=== PATIENT | male | born 1970 | race Caucasian/White ===

== ENCOUNTER 2021-03-13 07:16 | Observation (INO) | payer BC ==
[~2021-03-13] VITALS: Ht 172.7 cm; Wt 81.8 kg
[2021-03-13 07:30] LABS: BASO # 0.1 x10^3/uL (0.0-0.2); BASO % 1 % (0-3); EOS # 0.3 x10^3/uL (0.0-0.7); EOS % 4 % (0-3); HEMATOCRIT 41.1 % (39.0-53.0); HEMOGLOBIN 13.9 g/dL (13.0-17.5); LYMPH # 2.6 x10^3/uL (1.0-4.8); LYMPH % 30 % (24-48); MEAN CORPUSCULAR HEMOGLOBIN 31 pg (25-35); MEAN CORPUSCULAR HGB CONC 34 g/dL (31-37); MEAN CORPUSCULAR VOLUME 90 fL (79-100); MONO # 0.5 x10^3/uL (0.0-1.1); MONO % 6 % (0-9); NEUT # 5.1 x10^3/uL (1.8-7.7); NEUT % 60 % (31-73); PLATELET COUNT 191 x10^3/uL (140-400); RED BLOOD COUNT 4.56 x10^6/uL (4.30-5.70); RED CELL DISTRIBUTION WIDTH 14.7 % (11.5-14.5); WHITE BLOOD COUNT 8.6 x10^3/uL (4.0-11.0)
--- NOTE | 2021-03-13 07:30 | PHYS DOC ---
Past Medical History Past Medical History: CAD, Diabetes-Type II, Hypertension Additional Past Medical Histor: CAD s/p stents to RCA and LAD General Adult EDM: Chief Complaint: CHEST PAIN HPI: HPI: Patient is a 51 year old male with past medical history of HTN, DM, CAD s/p stents to RCA and LAD who presents with chest pressure starting at 6:30 AM while seated in his car. Was central. Did not radiate. He called EMS immediately, because it felt similar to his previous NC pain. No associated shortness of breath, fever/chills, or cough. No lower extremity edema. Was feeling well prior to this episode. EMS arrived on scene and gave him a nitroglycerin which alleviated his pain. In total, he estimates approximately 20 minutes of chest pain. He also received 324 mg of aspirin prehospital. He has been off of aspirin for some time, which she states was under the direction of his primary care doctor. Unclear whether he has drug-eluting vs bare-metal stents. Review of Systems: Review of Systems: Constitutional: Denies fever or chills. [] Eyes: Denies change in visual acuity. [] HENT: Denies nasal congestion or sore throat. [] Respiratory: Denies cough or shortness of breath. [] Cardiovascular: + chest pain or edema. [] GI: Denies abdominal pain, nausea, vomiting, bloody stools or diarrhea. [] : Denies dysuria. [] Musculoskeletal: Denies back pain or joint pain. [] Integument: Denies rash. [] Neurologic: Denies headache, focal weakness or sensory changes. [] Endocrine: Denies polyuria or polydipsia. [] Lymphatic: Denies swollen glands. [] Psychiatric: Denies depression or anxiety. [] Heart Score: C/O Chest Pain: Yes HEART Score for Chest Pain: HEART Score for Chest Pain Response (Comments) Value History Highly Suspicious [address] Depression 2 Age >45 - < 65 1 Risk Factors >3 Risk Factors or Hx CAD 2 Troponin < Normal Limit 0 Total 7 Risk Factors: Risk Factors: DM, Current or recent (<one month) smoker, HTN, HLP, family history of CAD, obesity. Risk Scores: Score 0 - 3: 2.5% MACE over next 6 weeks - Discharge Home Score 4 - 6: 20.3% MACE over next 6 weeks - Admit for Clinical Observation Score 7 - 10: 72.7% MACE over next 6 weeks - Early Invasive Strategies Physical Exam: PE: Constitutional: No distress. Well developed, well nourished, no acute distress, non-toxic appearance. [] HENT: Normocephalic, atraumatic, bilateral external ears normal, oropharynx moist, no oral exudates, nose normal. [] Eyes: PERRLA, EOMI, conjunctiva normal, no discharge. [] Neck: Normal range of motion, no tenderness, supple, no stridor. [] Cardiovascular:Heart rate regular rhythm, no murmur [] Lungs & Thorax: Bilateral breath sounds clear to auscultation [] Abdomen: Bowel sounds normal, soft, no tenderness, no masses, no pulsatile masses. [] Skin: Warm, dry, no erythema, no rash. [] Back: No tenderness, no CVA tenderness. [] Extremities: No tenderness, no cyanosis, no clubbing, ROM intact, no edema. [] Neurologic: Alert and oriented X 3, normal motor function, normal sensory function, no focal deficits noted. [] Psychologic: Affect normal, judgement normal, mood normal. [] EKG: EKG: Sinus rhythm. Rate 58. Normal axis. ST depressions and T wave inversions anteriorly V1V6. No ST elevation/STEMI [] Radiology/Procedures: Radiology/Procedures: CXR[] Impression: [facility] [address] [place] [address] IMAGING REPORT Signed PATIENT: KULWINDER ELKINS ACCOUNT: [id number] : 1970 LOCATION: ER AGE: 51 SEX: M EXAM STATUS: PRE ER ORD. PHYSICIAN: ADRI ANGELA MD REASON: chest pain PROCEDURE: CHEST AP ONLY Study: XR CHEST 1V Indication: Chest pain. Comparison: None. Findings: The cardiomediastinal silhouette is within normal limits for size. Coronary artery stent. Unremarkable catracho. No focal airspace infiltrate, pleural effusion or pneumothorax. Impression: No acute radiographic abnormality of the chest. Electronically signed by: ALEKS WOODS MD (03/13/2021 7:49 AM) [facility] DICTATED and SIGNED BY: ALEKS WOODS MD DATE: 03/13/21 [id number] 0 Course & Med Decision Making: Course & Med Decision Making Pertinent Labs and Imaging studies reviewed. (See chart for details) Patient is a 51-year-old male with history of HTN, DM, CAD s/p RCA and LAD stents who presents with chest pain reminiscent of previous NC pain. Pain alleviated with nitroglycerin. Received 324 mg prehospital aspirin. EKG here shows ST depression and T wave inversions anteriorly. Unfortunately, no previous tracing for comparison. Patient is no longer on daily aspirin, and unclear whether he has NILDA vs bare metal stents. Certainly most concerning for ACS. HEART SCORE = 7 prior to troponin. Will require admission for ongoing testing. I have a low suspicion for other serious causes of chest pain including PE, aortic dissection, PNA, PTX, esophageal rupture. 0729 Chest x-ray clear. Initial troponin is negative, but will require serial troponins. We will discuss admission with hospitalist. [id number] Vinay Disclaimer: Vinay Disclaimer: This electronic medical record was generated, in whole or in part, using a voice recognition dictation system. Departure Departure Impression: Primary Impression: Chest pain Disposition: ADMITTED INPATIENT Admitting Physician: SUHA Saravia) Condition: STABLE ADRI ANGELA MD Mar 13, 2021 07:30
[2021-03-13 07:40] LABS: CALCIUM 9.5 mg/dL (8.5-10.1); CREATININE 1.6 mg/dL (0.7-1.3); GFR 45.4; POTASSIUM 3.5 mmol/L (3.5-5.1)
[2021-03-13 07:45] LABS: ALBUMIN 3.6 g/dL (3.4-5.0); ALBUMIN/GLOBULIN RATIO 1.2 (1.0-1.7); TOTAL BILIRUBIN 0.4 mg/dL (0.2-1.0); TOTAL PROTEIN 6.7 g/dL (6.4-8.2)
--- NOTE | 2021-03-13 07:52 | RAD ---
Study: XR CHEST 1V Indication: Chest pain. Comparison: None. Findings: The cardiomediastinal silhouette is within normal limits for size. Coronary artery stent. Unremarkabl e catracho. No focal airspace infiltrate, pleural effusion or pneumothorax. Impression: No acute radiographic abnormality of the chest. Electronically signed by: ALEKS WOODS MD (03/13/2021 7:49 AM) [facility]
--- NOTE | 2021-03-13 08:12 | PDOC1 ---
History and Physical Date of Admission Date of Admission DATE: 03/13/21 TIME: 08:12 Identification/Chief Complaint Chief Complaint Chest pain Source Source: Patient History of Present Illness History of Present Illness Mr Longo is a 51 year old male with past medical history of HTN, DM, ADHD, smoker, and CAD s/p stents to RCA and LAD in 2018 (at [facility]) who presents with chest pressure starting at 6:30 AM while seated in his car after driving to work for [employer]. Was left sided and sharp, rated 7/10. Did not radiate, has some associated nausea and diaphoresis. He called EMS immediately, because it felt similar to his previous ID pain. No associated shortness of breath, fever/chills, or cough. No lower extremity cory ma. Was feeling well prior to this episode. EMS administered 324 mg of aspirin and a nitroglycerin which immediately alleviated his pain. His last cardiology follow-up was 2 years ago where he had an echocardiogram and does not know the results. He recently saw his primary care doctor and notes that he had said he stopped taking aspirin for over a year and they did not tell him to get back on it. He does continue to smoke a pack a day. He does not check his blood sugar takes Metformin monotherapy for his diabetes and says his last hemoglobin A1c was "good" but does not remember the number. EKG appears sinus rhythm rate of 54 bpm with a leftward axis T flattening in 2 aVF as well as inversion in V2 and V3 V4 V5 and V6. Chest radiograph no acute findings Labs WBC 8.6, Hb 13.9, platelets 191, sodium 135, K3.5, BUN 14, CR 1.6, glucose 340, bilirubin 0.4, AST 53, ALT 50, alk phos 111, troponin 0, albumin 3.6 Admitted for further observation and care. Past Medical History Cardiovascular: CAD, HTN, ID (2018 - NILDA to LAD and RCA), Hyperlipidemia Psych: Other (ADHD) Endocrine: Diabetes Past Surgical History Past Surgical History: No pertinent history Family History Family History: Coronary Artery Disease, Diabetes, High Cholestrol, Hypertension Social History Smoke: 1 pack per day ALCOHOL: none Drugs: None Current Problem List Problem List Problems Medical Problems: (1) Chest pain Status: Acute Allergies Allergies: Coded Allergies: No Known Drug Allergies (Unverified , 03/13/21) ROS General: No: Chills, Night Sweats, Fatigue, Malaise, Appetite, Other PSYCHOLOGICAL ROS: No: Anxiety, Behavioral Disorder, Concentration difficultie, Decreased libido, Depression, Disorientation, Hallucinations, Hostility, Irritablity, Memory difficulties, Mood Swings, Obsessive thoughts, Physical abuse, Sexual abuse, Sleep disturbances, Suicidal ideation, Other Eyes: No Blurry vision, No Decreased vision, No Double vision, No Dry eyes, No Excessive tearing, No Eye Pain, No Itchy Eyes, No Loss of vision, No Photophobia, No Scotomata, No Uses contacts, No Uses glasses, No Other HEENT: No: Heacaches, Visual Changes, Hearing change, Nasal congestion, Nasal discharge, Oral lesions, Sinus pain, Sore Throat, Epistaxis, Sneezing, Snoring, Tinnitus, Vertigo, Vocal changes, Other ALLERGY AND IMMUNOLOGY: No: Hives, Insect Bite Sensitivity, Itchy/Watery Eyes, Nasal Congestion, Post Nasal Drip, Seasonal Allergies, Other Hematological and Lymphatic: No: Bleeding Problems, Blood Clots, Blood Transfusions, Brusing, Night Sweats, Pallor, Swollen Lymph Nodes, Other ENDOCRINE: No: Breast Changes, Galactorrhea, Hair Pattern Changes, Hot Flashes, Malaise/lethargy, Mood Swings, Palpitations, Polydipsia/polyuria, Skin Changes, Temperature Intolerance, Unexpected Weight Changes, Other Breast: No New/Changing Breast Lumps, No Nipple changes, No Nipple discharge, No Other Respiratory: No: Cough, Hemoptysis, Orthopnea, Pleuritic Pain, Shortness of breath, SOB with excertion, Sputum Changes, Stridor, Tachypnea, Wheezing, Other Cardiovascular: yes Chest Pain; No Palpitations, No Orthopnea, No Paroxysmal Noc. Dyspnea, No Edema, No Lt Headedness, No Other Gastrointestinal: No Nausea, No Vomiting, No Abdominal Pain, No Diarrhea, No Constipation, No Melena, No Hematochezia, No Other Genitourinary: No Dysuria, No Frequency, No Incontinence, No Hematuria, No Retention, No Discharge, No Urgency, No Pain, No Flank Pain, No Other, No , No , No , No , No , No , No Musculoskeletal: No Gait Disturbance, No Joint Pain, No Joint Stiffness, No Joint Swelling, No Muscle Pain, No Muscular Weakness, No Pain In:, No Swelling In:, No Other Neurological: No Behavorial Changes, No Bowel/Bladder ControlChng, No Confusion, No Dizziness, No Gait Disturbance, No Headaches, No Impaired Coord/balance, No Memory Loss, No Numbness/Tingling, No Seizures, No Speech Problems, No Tremors, No Visual Changes, No Weakness, No Other Skin: No Dry Skin, No Eczema, No Hair Changes, No Lumps, No Mole Changes, No Mottling, No Nail Changes, No Pruritus, No Rash, No Skin Lesion Changes, No Other, No Acne Physical Exam General: Alert, Oriented X3, Cooperative, No acute distress HEENT: Atraumatic, PERRLA, EOMI, Mucous membr. moist/pink Lungs: Clear to auscultation, Normal air movement Heart: S1S2, RRR, no thrills, no rubs, no gallops, no murmurs Abdomen: Normal bowel sounds, Soft, No tenderness, No hepatosplenomegaly, No masses Rectal Exam: not examined Extremities: No clubbing, No cyanosis, No edema, Normal pulses, No tenderness/swelling Skin: No rashes, No breakdown, No significant lesion Neuro: Normal gait, Normal speech, Strength at 5/5 X4 ext, Normal tone, Sensation intact, Cranial nerves 3-12 NL, Reflexes 2+ Psych/Mental Status: Mental status NL, Mood NL Vitals Vitals Vital Signs Date Time Temp Pulse Resp B/P (MAP) Pulse Ox O2 Delivery O2 Flow Rate FiO2 03/13/21 08:10 56 119/74 (89) 95 03/13/21 07:19 98.5 20 Room Air 98.5 Labs Labs Laboratory Tests Test 03/13/21 07:20 White Blood Count 8.6 x10^3/uL (4.0-11.0) Red Blood Count 4.56 x10^6/uL (4.30-5.70) Hemoglobin 13.9 g/dL (13.0-17.5) Hematocrit 41.1 % (39.0-53.0) Mean Corpuscular Volume 90 fL (79-100) Mean Corpuscular Hemoglobin 31 pg (25-35) Mean Corpuscular Hemoglobin Concent 34 g/dL (31-37) Red Cell Distribution Width 14.7 % (11.5-14.5) Platelet Count 191 x10^3/uL (140-400) Neutrophils (%) (Auto) 60 % (31-73) Lymphocytes (%) (Auto) 30 % (24-48) Monocytes (%) (Auto) 6 % (0-9) Eosinophils (%) (Auto) 4 % (0-3) Basophils (%) (Auto) 1 % (0-3) Neutrophils # (Auto) 5.1 x10^3/uL (1.8-7.7) Lymphocytes # (Auto) 2.6 x10^3/uL (1.0-4.8) Monocytes # (Auto) 0.5 x10^3/uL (0.0-1.1) Eosinophils # (Auto) 0.3 x10^3/uL (0.0-0.7) Basophils # (Auto) 0.1 x10^3/uL (0.0-0.2) Sodium Level 135 mmol/L (136-145) Potassium Level 3.5 mmol/L (3.5-5.1) Chloride Level 101 mmol/L (98-107) Carbon Dioxide Level 21 mmol/L (21-32) Anion Gap 13 (6-14) Blood Urea Nitrogen 14 mg/dL (8-26) Creatinine 1.6 mg/dL (0.7-1.3) Estimated GFR (Cockcroft-Gault) 45.4 BUN/Creatinine Ratio 9 (6-20) Glucose Level 340 mg/dL (70-99) Calcium Level 9.5 mg/dL (8.5-10.1) Total Bilirubin 0.4 mg/dL (0.2-1.0) Aspartate Amino Transf (AST/SGOT) 53 U/L (15-37) Alanine Aminotransferase (ALT/SGPT) 50 U/L (16-63) Alkaline Phosphatase 111 U/L (46-116) Troponin I Quantitative < 0.017 ng/mL (0.000-0.055) Total Protein 6.7 g/dL (6.4-8.2) Albumin 3.6 g/dL (3.4-5.0) Albumin/Globulin Ratio 1.2 (1.0-1.7) Laboratory Tests Test 03/13/21 07:20 White Blood Count 8.6 x10^3/uL (4.0-11.0) Red Blood Count 4.56 x10^6/uL (4.30-5.70) Hemoglobin 13.9 g/dL (13.0-17.5) Hematocrit 41.1 % (39.0-53.0) Mean Corpuscular Volume 90 fL (79-100) Mean Corpuscular Hemoglobin 31 pg (25-35) Mean Corpuscular Hemoglobin Concent 34 g/dL (31-37) Red Cell Distribution Width 14.7 % (11.5-14.5) Platelet Count 191 x10^3/uL (140-400) Neutrophils (%) (Auto) 60 % (31-73) Lymphocytes (%) (Auto) 30 % (24-48) Monocytes (%) (Auto) 6 % (0-9) Eosinophils (%) (Auto) 4 % (0-3) Basophils (%) (Auto) 1 % (0-3) Neutrophils # (Auto) 5.1 x10^3/uL (1.8-7.7) Lymphocytes # (Auto) 2.6 x10^3/uL (1.0-4.8) Monocytes # (Auto) 0.5 x10^3/uL (0.0-1.1) Eosinophils # (Auto) 0.3 x10^3/uL (0.0-0.7) Basophils # (Auto) 0.1 x10^3/uL (0.0-0.2) Sodium Level 135 mmol/L (136-145) Potassium Level 3.5 mmol/L (3.5-5.1) Chloride Level 101 mmol/L (98-107) Carbon Dioxide Level 21 mmol/L (21-32) Anion Gap 13 (6-14) Blood Urea Nitrogen 14 mg/dL (8-26) Creatinine 1.6 mg/dL (0.7-1.3) Estimated GFR (Cockcroft-Gault) 45.4 BUN/Creatinine Ratio 9 (6-20) Glucose Level 340 mg/dL (70-99) Calcium Level 9.5 mg/dL (8.5-10.1) Total Bilirubin 0.4 mg/dL (0.2-1.0) Aspartate Amino Transf (AST/SGOT) 53 U/L (15-37) Alanine Aminotransferase (ALT/SGPT) 50 U/L (16-63) Alkaline Phosphatase 111 U/L (46-116) Troponin I Quantitative < 0.017 ng/mL (0.000-0.055) Total Protein 6.7 g/dL (6.4-8.2) Albumin 3.6 g/dL (3.4-5.0) Albumin/Globulin Ratio 1.2 (1.0-1.7) Images Images Chest radiograph: The cardiomediastinal silhouette is within normal limits for size. Coronary artery stent. Unremarkable catracho. No focal airspace infiltrate, pleural effusion or pneumothorax. Impression: No acute radiographic abnormality of the chest. VTE Prophylaxis Ordered VTE Prophylaxis Devices: No VTE Pharmacological Prophylaxi: Yes Assessment/Plan Assessment/Plan A/P: Unstable angina -needs nitroglycerin and ASA. Will trend troponins and monitor on telemetry. Echocardiogram to further risk stratify and consult cardiology for further recommendations. He prefer to follow-up at [facility] and made it clear to me. DM2 -on Metformin therapy. Will hold today urgent cardiac catheterization as needed. Advised to add Jardiance to his outpatient therapies amenable to taking a prescription. He should also have a microalbumin creatinine ratio checked HLD - statin HTN - on bystolic DARRICK - no hx of renal disease. likely vasomotor nephropathy, will hydrate Hypokalemia - will replace IV ADHD - recently taken off adderall per his PCP Smoker - counseled on cessation, provided nicotine replacement therapy, he declines FEN - cardiac diet PPX - lovenox FULL CODE Dispo - inpatient Justifications for Admission Other Justification ADOLFO VALENTINE MD Mar 13, 2021 08:12
[2021-03-13] MEDS ORDERED: ONDANSETRON PF 4 MG/2 ML VIAL. IVP PRN (08:15)
[2021-03-13] MEDS ORDERED: DEXTROSE 50% 25 GM / 50ML DISP.SYRIN. IV PRN (08:15)
[2021-03-13] MEDS ORDERED: ACETAMINOPHEN 325 MG TABLET. PO PRN (08:15)
[2021-03-13] MEDS ORDERED: NITROGLYCERIN SUBLINGUAL 0.4 MG BOTTLE OF 25. SL PRN (08:15)
[2021-03-13] MEDS ORDERED: POTASSIUM CL 20MEQ-0.45% NACL 1,000 ML IV ONE (09:00)
[2021-03-13] MEDS ORDERED: ENOXAPARIN 40 MG/0.4 ML SYRINGE. SQ SCH (09:00)
[2021-03-13] MEDS ORDERED: FAMOTIDINE 20 MG TABLET. PO ONE (09:00)
[2021-03-13] MEDS ORDERED: INSULIN LISPRO 300 UNITS/3 ML VIAL. SQ ONE (09:00)
[2021-03-13] MEDS ORDERED: INSULIN LISPRO 300 UNITS/3 ML VIAL. SQ SCH (12:00)
--- NOTE | 2021-03-13 12:34 | PDOC2 ---
ERNIE SPRINGER [employer] 03/13/21 1234: CARDIAC CONSULT DATE OF CONSULT Date of Consult DATE: 03/13/21 TIME: 12:30 REASON FOR CONSULT Reason for Consult: Chest pain REFERRING PHYSICIAN Referring Physician: Dr. Hemphill SOURCE Source: Chart review, Patient HISTORY OF PRESENT ILLNESS HISTORY OF PRESENT ILLNESS This is a 51 yo male who presented secondary to chest pain. Patient reports development of left chest pain upon driving to work this morning. Reports pressure in his left chest. Associated with shortness of breath. No dizziness, diaphoresis, or nausea/vomiting. Pain did not radiate, but was similar to what maciel green experienced 10 years ago with NJ so he decided to come to the ED for further evaluation and treatment. Pain resolved with nitro in ED and has not returned. Previously followed at [facility]. Had followup up with stress test and echo about 6-7 months for which he reports as normal. PAST MEDICAL HISTORY Cardiovascular: CAD, HTN, Hyperlipidemia Endocrine: Diabetes PAST SURGICAL HISTORY Past Surgical History: Other (PCI/stents to RCA and LAD) FAMILY HISTORY Family History: Hypertension SOCIAL HISTORY Smoke: 1 pack per day ALCOHOL: none Drugs: None Lives: with Family CURRENT MEDICATIONS CURRENT MEDICATIONS Current Medications Medications (Trade) Dose Ordered Sig/Minerva Route PRN Reason Start Time Stop Time Status Last Admin Dose Admin Potassium Chloride/Sodium Chloride 1,000 ml @ 150 mls/hr [id number] ONCE IV 03/13/21 09:00 03/13/21 15:39 03/13/21 09:16 Insulin Human Lispro (HumaLOG) 10 units 1X ONCE SQ 03/13/21 09:00 03/13/21 09:01 DC 03/13/21 09:15 Famotidine (Pepcid) 20 mg 1X ONCE PO 03/13/21 09:00 03/13/21 09:01 DC 03/13/21 09:22 Enoxaparin Sodium (Lovenox 40mg Syringe) 40 mg Q24H SQ 03/13/21 09:00 03/13/21 09:23 ALLERGIES ALLERGIES: Coded Allergies: No Known Drug Allergies (Unverified , 03/13/21) ROS Review of System 14 point ROS conducted with pertinent positives noted above in HPI PHYSICAL EXAM General: Alert, Oriented X3, Cooperative, No acute distress HEENT: Atraumatic Lungs: Clear to auscultation Heart: Regular rate Abdomen: Soft Extremities: No edema, Normal pulses Skin: No breakdown, No significant lesion Neuro: Normal speech, Sensation intact Psych/Mental Status: Mental status NL, Mood NL MUSCULOSKELETAL: Osteoarthritic changes both hands VITALS/I&O VITALS/I&O: Vital Signs Date Time Temp Pulse Resp B/P (MAP) Pulse Ox O2 Delivery O2 Flow Rate FiO2 03/13/21 10:17 49 105/62 (76) 95 03/13/21 07:19 98.5 20 Room Air 98.5 LABS Lab: Laboratory Tests Test 03/13/21 07:20 03/13/21 08:28 03/13/21 09:13 03/13/21 11:37 White Blood Count 8.6 x10^3/uL (4.0-11.0) Red Blood Count 4.56 x10^6/uL (4.30-5.70) Hemoglobin 13.9 g/dL (13.0-17.5) Hematocrit 41.1 % (39.0-53.0) Mean Corpuscular Volume 90 fL (79-100) Mean Corpuscular Hemoglobin 31 pg (25-35) Mean Corpuscular Hemoglobin Concent 34 g/dL (31-37) Red Cell Distribution Width 14.7 % (11.5-14.5) H Platelet Count 191 x10^3/uL (140-400) Neutrophils (%) (Auto) 60 % (31-73) Lymphocytes (%) (Auto) 30 % (24-48) Monocytes (%) (Auto) 6 % (0-9) Eosinophils (%) (Auto) 4 % (0-3) H Basophils (%) (Auto) 1 % (0-3) Neutrophils # (Auto) 5.1 x10^3/uL (1.8-7.7) Lymphocytes # (Auto) 2.6 x10^3/uL (1.0-4.8) Monocytes # (Auto) 0.5 x10^3/uL (0.0-1.1) Eosinophils # (Auto) 0.3 x10^3/uL (0.0-0.7) Basophils # (Auto) 0.1 x10^3/uL (0.0-0.2) Sodium Level 135 mmol/L (136-145) L Potassium Level 3.5 mmol/L (3.5-5.1) Chloride Level 101 mmol/L (98-107) Carbon Dioxide Level 21 mmol/L (21-32) Anion Gap 13 (6-14) Blood Urea Nitrogen 14 mg/dL (8-26) Creatinine 1.6 mg/dL (0.7-1.3) H Estimated GFR (Cockcroft-Gault) 45.4 BUN/Creatinine Ratio 9 (6-20) Glucose Level 340 mg/dL (70-99) H Calcium Level 9.5 mg/dL (8.5-10.1) Total Bilirubin 0.4 mg/dL (0.2-1.0) Aspartate Amino Transferase (AST) 53 U/L (15-37) H Alanine Aminotransferase (ALT) 50 U/L (16-63) Alkaline Phosphatase 111 U/L (46-116) Troponin I Quantitative < 0.017 ng/mL (0.000-0.055) < 0.017 ng/mL (0.000-0.055) < 0.017 ng/mL (0.000-0.055) Total Protein 6.7 g/dL (6.4-8.2) Albumin 3.6 g/dL (3.4-5.0) Albumin/Globulin Ratio 1.2 (1.0-1.7) Glucose (Fingerstick) 205 mg/dL (70-99) H Laboratory Tests 03/13/21 07:20 Laboratory Tests 03/13/21 07:20 ASSESSMENT/PLAN ASSESSMENT/PLAN 1. Chest pain with typical features; AMI ruled out. 2. CAD s/p PCI/stents to RCA and LAD approximately 10 years ago at [facility]. Reports normal stress and echo 6-7 months ago 3. Hypertension; controlled 4. Hyperlipidemia; statin 5. Diabetes, II; uncontrolled. As per PCP 6. DARRICK vs CKD 7. Tobaccoism; discussed/encouraged cessation Recommendations Echo to assess LV systolic function Resume secondary prevention measures Add ASA Will need further ischemic evaluation. Patient requesting this to be conducted on an outpatient basis at [facility]. Supportive care Further pending above. LETI RODNEY MD 03/13/21 1254: CARDIAC CONSULT ASSESSMENT/PLAN ASSESSMENT/PLAN Patient seen and examined Agree with our nurse practitioner's assessment. Chest pain. History of coronary artery disease with a previous stenting at [facility]. Patient has ruled out for an acute NJ with 3 negative troponins. His EKG shows no acute ischemic changes. His echo shows normal LV size and systolic function with no regional wall motion abnormalities. The patient has now been pain-free for multiple hours. I did discuss test results with the patient. I explained to him that I believe the optimal course of treatment would be to monitor overnight and perform a heart catheterization tomorrow morning. He strongly prefers to follow up with his usual or first assist registered nurse at [facility]. After discussing the risks and benefits of that course of treatment he still would like to leave the hospital tonight. I believe this is reasonable and the patient agreed to follow-up with his or first assist registered nurse tomorrow. If he has any further pain in his chest he will go to the nearest hospital immediately. He lives close to [facility]. Hypertension; controlled Hyperlipidemia; statin ERNIE SPRINGER APRN Mar 13, 2021 12:34 LETI RODNEY MD Mar 13, 2021 16:35
--- NOTE | 2021-03-13 15:40 | CARD ---
MR#: [id number] Date of Study: 03/13/2021 Ordering Physician: ADOLFO VALENTINE, Referring Physician: ADOLFO VALENTINE, Tech: Henry Guevara APPROVED REPORT EXAM: Two-dimensional and M-mode echocardiogram with Doppler and color Doppler. Other Information Quality : AverageFairHR: 50bpm Rhythm : NSR INDICATION Cardiac Disease: CAD RISK FACTORS Hypertension Hyperlipidemia Diabetes Smoking 2D DIMENSIONS Left Atrium(2D)3.5 (1.6-4.0cm)IVSd0.7 (0.7-1.1cm) Aortic Root(2D)4.0 (2.0-3.7cm)LVDd5.1 (3.9-5.9cm) LVOT Diameter2.3 (1.8-2.4cm)PWd0.7 (0.7-1.1cm) LVDs2.9 (2.5-4.0cm) Aortic Valve AoV Peak Nigel.137.0cm/sAoV VTI28.1cm AO Peak GR.7.5mmHgLVOT Peak Nigel.89.5cm/s AO Mean GR.4mmHgAVA (VMAX)2.74cm2 Mitral Valve MV E Dxvyosck06.1cm/sMV E Peak Gr.2mmHg MV DECEL [id number] A Eczjjxkh38.6cm/s MV E Mean Gr.1mmHgE/A Ratio1.2 Pulmonary Valve PV Peak Vaahgngm21.1cm/s Tricuspid Valve TR P. Jutfyaty356xs/sTR Peak Gr.12mmHg Pulmonary Vein S1 Vufpahvm02.9cm/sD2 Hjkdwdmt51.3cm/s LEFT VENTRICLE The left ventricle is normal size. There is normal left ventricular wall thickness. The left ventricu lar systolic function is normal and the ejection fraction is within normal range. Left ventricular ej ection fraction is 55 to 60%. There is normal LV segmental wall motion. The left ventricular diastoli c function and filling is normal for age. No left ventricle thrombus noted on this study. There is no ventricular septal defect visualized. There is no left ventricular aneurysm. There is no mass noted in the left ventricle. RIGHT VENTRICLE The right ventricle is normal size. There is normal right ventricular wall thickness. The right ventr icular systolic function is normal. ATRIA The left atrium size is normal. The right atrium size is normal. The interatrial septum is intact wit h no evidence for an atrial septal defect or patent foramen ovale as noted on 2-D or Doppler imaging. AORTIC VALVE The aortic valve is normal in structure and function. Doppler and Color Flow revealed no significant aortic regurgitation. There is no significant aortic valvular stenosis. There is no aortic valvular v egetation. MITRAL VALVE The mitral valve is normal in structure and function. There is no evidence of mitral valve prolapse. There is no mitral valve stenosis. Doppler and Color Flow revealed trace mitral valve regurgitation. TRICUSPID VALVE The tricuspid valve is normal in structure and function. Doppler and Color Flow revealed trace tricus pid regurgitation. There is no tricuspid valve prolapse or vegetation. There is no tricuspid valve st enosis. PULMONIC VALVE The pulmonary valve is normal in structure and function. Doppler and Color Flow revealed no pulmonic valvular regurgitation. There is no pulmonic valvular stenosis. GREAT VESSELS Ao root at the level of the sinus of valsalva is mildly enlarged at 4.0 cm. The ascending aorta is no rmal in size. The pulmonary artery is normal. The IVC is normal in size and collapses >50% with inspi ration. PERICARDIAL EFFUSION There is no pleural effusion. There is no evidence of significant pericardial effusion. Critical Notification Critical Value: No <Conclusion> The left ventricle is normal size. The left ventricular systolic function is normal and the ejection fraction is within normal range. Left ventricular ejection fraction is 55 to 60%. Doppler and Color Flow revealed no significant aortic regurgitation. There is no significant aortic valvular stenosis. Doppler and Color Flow revealed trace mitral valve regurgitation. Doppler and Color Flow revealed trace tricuspid regurgitation. Ao root at the level of the sinus of valsalva is mildly enlarged at 4.0 cm. Signed by : Tyson Dubois MD Electronically Approved : 03/13/2021 15:39:56
[2021-03-13] MEDS ORDERED: METF10007 PO (16:20)
[2021-03-13] MEDS ORDERED: LISI-517 PO (16:20)
[2021-03-13] MEDS ORDERED: DAPA10TA PO (16:20)
[2021-03-13] MEDS ORDERED: BYSTOLIC10 MG PO (16:20)
[2021-03-13] MEDS ORDERED: CRESTOR5 MG PO (16:20)
[2021-03-13] MEDS ORDERED: ASPI-886 PO (16:21)
[2021-03-13] MEDS ORDERED: NITR0.4T22 SL (16:21)
[2021-03-13 17:37] VITALS: BP 116/95
== END 2021-03-13 17:37 | disposition home or self-care (01) ==
LOC: ER 07:16 → ED HOLD 08:15 → INTOOBSV 08:15
PROVIDERS: ADMIT Internal Medicine; ATTEND Internal Medicine
DX: I25.110 Atherosclerotic heart disease of native coronary artery with unstable angina pectoris (principal); I10 Essential (primary) hypertension; E11.9 Type 2 diabetes mellitus without complications; I25.2 Old myocardial infarction; E87.6 Hypokalemia; E78.00 Pure hypercholesterolemia, unspecified; E78.5 Hyperlipidemia, unspecified; R74.8 Abnormal levels of other serum enzymes; F90.9 Attention-deficit hyperactivity disorder, unspecified type; F17.210 Nicotine dependence, cigarettes, uncomplicated; N17.9 Acute kidney failure, unspecified; Z82.49 Family history of ischemic heart disease and other diseases of the circulatory system; Z83.3 Family history of diabetes mellitus; Z95.5 Presence of coronary angioplasty implant and graft
CPT/HCPCS: 36415; 71045; 80053; 82962; 84484; 85025; 93005; 93306; 96365; 96366; 96372; 99285; G0378; J1650; J1815; J3480; G0379